=== PATIENT | male | born 1980 | race Two or more races ===

== ENCOUNTER 2024-08-10 09:09 | Emergency (ER) | payer MEDICAID, MEDICARE ==
[~2024-08-10] VITALS: Ht 185.4 cm; Wt 95.5 kg
[2024-08-10 09:33] VITALS: BP 112/65; PULSE 105; RESP 24; TEMP 97.3; O2SAT 99
[2024-08-10 10:22] LABS: Basophils # (auto) 0.1 10 ^3/uL (0-0.2); Basophils % (auto) 0.3 % (0.0-2.0); Eosinophils # (auto) 0.1 10 ^3/uL (0-0.8); Eosinophils % (auto) 0.4 % (0.0-7.0); Hemoglobin 14.6 g/dL (13.5-17.5); Lymphocytes # (auto) 2.3 10 ^3/uL (0.4-5.4); Lymphocytes % (auto) 14.4 % (10.0-50.0); Mean Corpuscular Hemoglobin 30.9 pg (28.0-32.0); Mean Corpuscular Hgb Conc. 33.2 g/dL (32.0-36.0); Mean Corpuscular Volume 92.9 fL (80.0-100.0); Monocytes # (auto) 0.9 10 ^3/uL (0-1.3); Monocytes % (auto) 5.5 % (0.0-12.0); Neutrophils # (auto) 12.6 10 ^3/uL (1.6-8.6); Neutrophils % (auto) 79.4 % (37.0-80.0); Nucleated Red Blood Cells % 0.1 %; Platelet Count (auto) 350 10^3/uL (140-450); Red Blood Cells 4.74 10^6/uL (4.5-5.90); White Blood Cell 15.9 10^3/uL (4.4-10.8)
--- NOTE | 2024-08-10 10:31 | ED.PDOC ---
Leydi. trauma (HPI) HPI Comments This is a 43 year old male presenting to the ED with chief complaint of fall injury. Patient reports that he had been at a skate park with his children a week ago when his daughter was approaching the edge of a steep slope, managing to move her away, but fell over and landed on his right side, causing him to lose consciousness for some time. Patient relays that since the fall, he has been experiencing bilateral leg swelling and discoloration, lower back pain, numbness from abdomen down, hematuria, and blood in stools. 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 Patient denies any N/V/D, dizziness, headache, chest pain, SOB, dysuria, flank pain, melena, or hematemesi s. Chief Complaint: Fall Injury Time Seen by MD: 10:28 Primary Care Provider: DENIES Reviewed notes: Nurses Notes, Medications, Allergies Allergies: Coded Allergies: NO KNOWN ALLERGIES (Unverified , 09/01/10) Information Source: Patient Mode of Arrival: Wheelchair Severity: Moderate Timing: Weeks Duration: Since onset Prehospital treatment: None Location: Abdominal, Back, (L) Leg, (R) Leg Mechanism: Fall Past Medical History Past Medical History (Other): DVTs Surgical History: Cholecystectomy Surgical History (Other): Right arm above elbow amputation, thoracic surgery s/p work accident, splenectomy Family History Family History: Reviewed,noncontributory to illness Social History Smoker: Non-Smoker Alcohol: Denies ETOH Use Drugs: Denies Drug Use Lives In: Home Constitutional: denies: chills, diaphoresis, fatigue, fever, malaise, sweats, weakness, others EENTM: denies: blurred vision, double vision, ear bleeding, ear discharge, ear drainage, ear pain, ear ringing, eye pain, eye redness, hearing loss, mouth pain, mouth swelling, nasal discharge, nose bleeding, nose congestion, nose pain, photophobia, tearing, throat pain, throat swelling, voice changes, others Respiratory: denies: cough, hemoptysis, orthopnea, SOB at rest, shortness of breath, SOB with excertion, stridor, wheezing, others Cardiovascular: reports: edema; denies: chest pain, dizzy spells, diaphoresis, Dyspnea on exertion, irregular heart beat, left arm pain, lightheadedness, palpitations, PND, syncope, others Gastrointestinal: reports: blood streaked bowels; denies: abdomen distended, abdominal pain, constipated, diarrhea, dysphagia, difficulty swallowing, hematemesis, melena, nausea, poor appetite, poor fluid intake, rectal bleeding, rectal pain, vomiting, others Genitourinary: reports: hematuria; denies: burning, dysuria, flank pain, frequency, incontinence, penile discharge, penile sore, pain, testicle pain, testicle swelling, urgency, others Neurological: reports: numbness; denies: dizziness, fainting, headache, left sided numbness, left sided weakness, paresthesia, pre-existing deficit, right sided numbness, right sided weakness, seizure, speech problems, tingling, tremors, weakness, others Musculoskeletal: reports: back pain; denies: gout, joint pain, joint swelling, muscle pain, muscle stiffness, neck pain, others Integumetry: denies: bruises, change in color, change in hair/nails, dryness, laceration, lesions, lumps, rash, wounds, others Allergic/Immunocompromised: denies: Difficulty Healing, Frequent Infections, Hives, Itching, others Hematologic/Lymphatic: denies: anemia, blood clots, easy bleeding, easy bruising, swollen glands, others Endocrine: denies: excessive hunger, excessive sweating, excessive thirst, excessive urination, flushing, intolerance to cold, intolerance to heat, unexplained weight gain, unexplained weight loss, others Psychiatric: denies: anxiety, bipolar disorder, depression, hopeless, panic disorder, schizophrenia, sleepless, suicidal, others All Other Systems: Reviewed and Negative Physical Exam General Appearance: No Apparent Distress, Normal HEENT: Normal ENT Inspection, Pharynx Normal, TMs Normal Neck: Full Range of Motion, Non-Tender, Normal, Normal Inspection Respiratory: Chest Non-Tender, Lungs Clear, No Accessory Muscle Use, No Respiratory Distress, Normal Breath Sounds Cardiovascular: No Edema, No JVD, No Murmur, No Gallop, Normal Peripheral Pulses, Regular Rate/Rhythm Breast Exam: Deferred Gastrointestinal: No Organomegaly, Non Tender, No Pulsatile Mass, Normal Bowel Sounds, Soft, Other (No abdominal bruising or signs of obvious trauma) Genitalia: Deferred Pelvic: Deferred Rectal: Deferred Extremities: Other (3+ pedal edema, right arm post amputation stump, moves all extremities) Musculoskeletal : Apperance: Normal Neurologic: Alert, trace evidence technician II-XII nml as Tested, No Motor Deficits, Normal Affect, Normal Mood, No Sensory Deficits Cerebellar Function: Normal Reflexes: Normal Skin: Dry, Normal Color, Warm Lymphatic: No Adenopathy Was a procedure done? Was a procedure done?: No Differential Diagnosis Multiple Trauma: Fractures, Intraabdominal Injury, Spine Injury, Vascular Injury, Contusion, Hematoma Neck Injury: Spinal Cord Injury X-Ray, Labs, Meds, VS Vital Signs Date Time Temp Pulse Resp B/P (MAP) Pulse Ox O2 Delivery O2 Flow Rate FiO2 08/10/24 09:33 97.3 105 24 112/65 (81) 99 97.3 Lab Test 08/10/24 10:05 Range/Units White Blood Count 15.9 H 4.4-10.8 10^3/uL Red Blood Count 4.74 4.5-5.90 10^6/uL Hemoglobin 14.6 13.5-17.5 g/dL Hematocrit 44.0 41.0-53.0 % Mean Corpuscular Volume 92.9 80.0-100.0 fL Mean Corpuscular Hemoglobin 30.9 28.0-32.0 pg Mean Corpuscular Hemoglobin Concent 33.2 32.0-36.0 g/dL Red Cell Distribution Width 14.0 11.8-14.3 % Platelet Count 350 140-450 10^3/uL Mean Platelet Volume 7.8 6.9-10.8 fL Neutrophils (%) (Auto) 79.4 37.0-80.0 % Lymphocytes (%) (Auto) 14.4 10.0-50.0 % Monocytes (%) (Auto) 5.5 0.0-12.0 % Eosinophils (%) (Auto) 0.4 0.0-7.0 % Basophils (%) (Auto) 0.3 0.0-2.0 % Neutrophils # (Auto) 12.6 H 1.6-8.6 10 ^3/uL Lymphocytes # (Auto) 2.3 0.4-5.4 10 ^3/uL Monocytes # (Auto) 0.9 0-1.3 10 ^3/uL Eosinophils # (Auto) 0.1 0-0.8 10 ^3/uL Basophils # (Auto) 0.1 0-0.2 10 ^3/uL Nucleated Red Blood Cells 0.1 % Prothrombin Time 11.1 9.3-11.8 sec Prothrombin Time INR 1.05 0.9-1.15 Activated Partial Thromboplast Time 22.7 L 24.5-34.5 SEC Sodium Level 141 136-145 mmol/L Potassium Level 4.2 3.5-5.1 mmol/L Chloride Level 106 98-107 mmol/L Carbon Dioxide Level 23 20-31 mmol/L Anion Gap 12 5-15 Blood Urea Nitrogen 16 9-23 mg/dL Creatinine 1.06 0.700-1.30 mg/dL Glomerular Filtration Rate Calc 89 >90 mL/min BUN/Creatinine Ratio 15.1 10.0-20.0 Serum Glucose 120 H 74-106 mg/dL Calcium Level 10.8 H 8.7-10.4 mg/dL Total Bilirubin 1.2 H 0.2-1.0 mg/dL Aspartate Amino Transferase (AST) 30 <34 U/L Alanine Aminotransferase (ALT) 39 7-40 U/L Alkaline Phosphatase 130 H 46-116 U/L Total Protein 8.5 H 5.7-8.2 g/dL Albumin 5.3 H 3.2-4.8 g/dL Time of 1ST Reevaluation: 11:26 Reevaluation 1ST: Unchanged Time of 2ND Reevaluation: 12:00 Reevaluation 2ND: pt eloped Patient Education/Counseling: Diagnosis, Treatment, Prognosis, Need For Follow Up Family Education/Counseling: No Family Present Additional Information Previous visits reviewed: 09/01/10 for abdominal pain The following tests were ordered, and results were reviewed by me: CT Angio Abd Aorta w/ runoff, CT LS Spine, Type/Screen, CBC, CMP, PTPTT Additional Information was gathered from interviewing the following independent historians: None I reviewed and agreed with the following test results read by other providers: CT Angio Abd Aorta w/ runoff, CT LS Spine I discussed treatment and results with medical personnel and: patient Comprehensive systems review obtained and negative except for what is stated in the HPI. pt was laying on the floor, and was told by charge nurse to sit in a chair, but he did not like it so asked to have his IV removed and eloped Departure 1 Departure Time of Disposition: 12:00 Impression: Primary Impression: Back pain Additional Impressions: Injury Abdominal pain Qualified Codes: R10.13 - Epigastric pain Leg numbness Disposition: 07 LEFT AWOL/ELOPED Condition: Other (unknown) Critical Care Note Critical Care Time?: Yes (45 min-critical care time only) Critical care comment: Due to concerns for patients condition deteriorating, the care required my highest level of attention and readiness to intervene. I assessed the patient, reviewed the medical records, ordered the appropriate tests and treatments, then reassessed for results and responsiveness. I communicated with medical personnel and consultants and formulated a plan of care. Total critical care time excludes any procedures Stability Stability form required: No Heart Score Heart Score: Heart Score Response (Comments) Value History N/A 0 EKG N/A 0 Age N/A 0 Risk Factors N/A 0 Troponin N/A 0 Total 0 I personally scribed for LALA GARCIA MD ([email or web address]) on 08/10/24 at 10:31. Electronically submitted by Agustin Combs ([email or web address]). LALA GARCIA MD Aug 10, 2024 10:31
[2024-08-10 10:36] LABS: Alanine Aminotransferase 39 U/L (7-40); Anion Gap 12 (5-15); Aspartate Aminotransferase 30 U/L (<34); BUN/Creatinine Ratio 15.1 (10.0-20.0); Bilirubin, Total 1.2 mg/dL (0.2-1.0); Blood Urea Nitrogen 16 mg/dL (9-23); Carbon Dioxide 23 mmol/L (20-31); Chloride 106 mmol/L (98-107); Potassium 4.2 mmol/L (3.5-5.1); Sodium 141 mmol/L (136-145)
[2024-08-10 10:52] LABS: INR 1.05 (0.9-1.15); Partial Thromboplastin Time 22.7 SEC (24.5-34.5); Prothrombin Time 11.1 sec (9.3-11.8)
[2024-08-10 10:59] LABS: Albumin 5.3 g/dL (3.2-4.8); Alkaline Phosphatase 130 U/L (46-116); Calcium 10.8 mg/dL (8.7-10.4); Glucose 120 mg/dL (74-106); Total Protein 8.5 g/dL (5.7-8.2)
[2024-08-10] MEDS ORDERED: fentaNYL CITRATE 100 MCG/2 ML VL IM ONE (12:00)
[2024-08-10] MEDS ORDERED: IOHEXOL 350 MG/ML 100ML IJ ONE (14:39)
[2024-08-11] MEDS ORDERED: APIX5TAB PO (18:29)
[2024-08-11] MEDS ORDERED: CYCL-839 PO (18:31)
[2024-08-14] MEDS ORDERED: AUG875T PO (10:36)
[2024-08-14] MEDS ORDERED: PERCOT PO (10:36)
== END 2024-08-10 12:03 | disposition left against medical advice (07) ==
LOC: ER 09:18
DX: S49.81XA Other specified injuries of right shoulder and upper arm, initial encounter (principal); M54.50 Low back pain, unspecified; R31.9 Hematuria, unspecified; M79.89 Other specified soft tissue disorders; R20.0 Anesthesia of skin; R10.9 Unspecified abdominal pain; Z86.718 Personal history of other venous thrombosis and embolism; Z90.49 Acquired absence of other specified parts of digestive tract; Z98.890 Other specified postprocedural states; W18.39XA Other fall on same level, initial encounter; Y93.89 Activity, other specified; Y92.830 Public park as the place of occurrence of the external cause; Y99.8 Other external cause status
CPT/HCPCS: 36415; 80053; 85025; 85610; 85730; 86850; 86870; 86900; 86901; 86905; 99283; J3010; J7030; Q9967

== ENCOUNTER 2024-08-10 12:55 | Inpatient (IN) | payer MEDICAID ==
[~2024-08-10] VITALS: Ht 177.8 cm; Wt 97.6 kg
--- NOTE | 2024-08-10 14:36 | ED.PDOC ---
Musculoskeletal HPI Comments This is a 43 year old male presenting to the ED with chief complaint of fall injury. Patient reports that he had been at a skate park with his children a week ago when his daughter was approaching the edge of a steep slope, managing to move her away, but fell over and landed on his right side, causing him to lose consciousness for some time. Patient relays that since the fall, he has been experiencing bilateral leg swelling and discoloration, lower back pain, numbness from abdomen down, hematuria, and blood in stools. 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 Patient denies any N/V/D, dizziness, headache, chest pain, SOB, dysuria, flank pain, melena, or hematemesis. Patient had eloped from the department, however, 911 was called again by a bystander and patient was transported by EMS back to the ED. Patient continues to complain of the same symptoms. Chief Complaint: Lower Extremity Time Seen by MD: 14:31 Primary Care Provider: DENIES Reviewed Notes: Nurses Notes, [employer]ra[employer] Roller Notes, Medications, Allergies Allergies: Coded Allergies: NO KNOWN ALLERGIES (Unverified , 09/01/10) Information Source: Patient, Emergency Med Personnel Mode of Arrival: EMS Location: Right Extremity Location: Back, Leg Timing: Weeks Prehospital treatment: None Severity: Severe Able to Move Extremity: Yes Bear Weight: Limited Pain: Moderate Mechanism: Blunt Trauma Circumstances: Fall Onset of Symptoms: After Trauma Symptoms: Swelling, Pain, Erythema DVT Risk Factors: DVT Past Medical History Past Medical History (Other): DVTs Surgical History: Cholecystectomy Surgical History (Other): Right arm above elbow amputation, thoracic surgery s/p work accident, splenectomy Family History Family History: Reviewed,noncontributory to illness Social History Smoker: Non-Smoker Alcohol: Denies ETOH Use Drugs: Denies Drug Use Lives In: Home Constitutional: denies: chills, diaphoresis, fatigue, fever, malaise, sweats, weakness, others EENTM: denies: blurred vision, double vision, ear bleeding, ear discharge, ear drainage, ear pain, ear ringing, eye pain, eye redness, hearing loss, mouth pain, mouth swelling, nasal discharge, nose bleeding, nose congestion, nose pain, photophobia, tearing, throat pain, throat swelling, voice changes, others Respiratory: denies: cough, hemoptysis, orthopnea, SOB at rest, shortness of breath, SOB with excertion, stridor, wheezing, others Cardiovascular: reports: edema; denies: chest pain, dizzy spells, diaphoresis, Dyspnea on exertion, irregular heart beat, left arm pain, lightheadedness, palpitations, PND, syncope, others Gastrointestinal: reports: blood streaked bowels; denies: abdomen distended, abdominal pain, constipated, diarrhea, dysphagia, difficulty swallowing, hematemesis, melena, nausea, poor appetite, poor fluid intake, rectal bleeding, rectal pain, vomiting, others Genitourinary: reports: hematuria; denies: burning, dysuria, flank pain, fr equency, incontinence, penile discharge, penile sore, pain, testicle pain, testicle swelling, urgency, others Neurological: reports: numbness; denies: dizziness, fainting, headache, left sided numbness, left sided weakness, paresthesia, pre-existing deficit, right sided numbness, right sided weakness, seizure, speech problems, tingling, tr emors, weakness, others Musculoskeletal: reports: back pain; denies: gout, joint pain, joint swelling, muscle pain, muscle stiffness, neck pain, others Integumetry: denies: bruises, change in color, change in hair/nails, dryness, laceration, lesions, lumps, rash, wounds, others Allergic/Immunocompromised: denies: Difficulty Healing, Frequent Infections, Hives, Itching, others Hematologic/Lymphatic: denies: anemia, blood clots, easy bleeding, easy bruising, swollen glands, others Endocrine: denies: excessive hunger, excessive sweating, excessive thirst, excessive urination, flushing, intolerance to cold, intolerance to heat, unexp lained weight gain, unexplained weight loss, others Psychiatric: denies: anxiety, bipolar disorder, depression, hopeless, panic disorder, schizophrenia, sleepless, suicidal, others All Other Systems: Reviewed and Negative Physical Exam General Appearance: No Apparent Distress, Normal HEENT: Normal ENT Inspection, Pharynx Normal, TMs Normal Neck: Full Range of Motion, Non-Tender, Normal, Normal Inspection Respiratory: Chest Non-Tender, Lungs Clear, No Accessory Muscle Use, No Respiratory Distress, Normal Breath Sounds Cardiovascular: No Edema, No JVD, No Murmur, No Gallop, Normal Peripheral Pulse s, Regular Rate/Rhythm Breast Exam: Deferred Gastrointestinal: No Organomegaly, Non Tender, No Pulsatile Mass, Normal Bowel Sounds, Soft, Other (No abdominal bruising or signs of obvious trauma) Genitalia: Deferred Pelvic: Deferred Rectal: Deferred Extremities: Other (3+ pedal edema, right arm post amputation stump, moves all extremities) Musculoskeletal : Apperance: Normal Neurologic: Alert, assistant floor covering printer II-XII nml as Tested, No Motor Deficits, Normal Affect, Normal Mood, No Sensory Deficits Cerebellar Function: Normal Reflexes: Normal Skin: Dry, Normal Color, Warm Lymphatic: No Adenopathy Was a procedure done? Was a procedure done?: No Differential Diagnosis EXT Differential Diagnosis: Cellulitis, CHF, Compartment Syndrome, Fracture, Sprain, Dislocation, Laceration, Contusion, Strain, Neurovascular injury, Other (aortic injury, spinal injury) X-Ray, Labs, Meds, VS Vital Signs Date Time Temp Pulse Resp B/P (MAP) Pulse Ox O2 Delivery O2 Flow Rate FiO2 08/10/24 17:07 97.6 97 24 108/72 (84) 95 97.6 08/10/24 13:23 97.9 92 18 96/64 (75) 98 97.9 Time of 1ST Reevaluation: 15:31 Reevaluation 1ST: Unchanged Time of 2ND Reevaluation: 17:43 Reevaluation 2ND: Improved Patient Education/Counseling: Diagnosis, Treatment, Prognosis, Need For Follow Up Family Education/Counseling: No Family Present Comments pt has 3+ bipedal edema. he also feels numb, but is able to ambulate. i was concerned about possibly neurovascular or spinal injuries, but the CTs are reassuring. his numbness likely is due to the extensive swelling. a concurrent cellulitis is possible he will be admitted for antibiotic and further treatments Additional Information Previous visits reviewed: 09/01/10 for abdominal pain The following tests were ordered, and results were reviewed by me: CT Angio Abd Aorta w/ runoff, CT LS Spine, Type/Screen, CBC, CMP, PTPTT Additional Information was gathered from interviewing the following independent historians: None I reviewed and agreed with the following test results read by other providers: CT Angio Abd Aorta w/ runoff, CT LS Spine I discussed treatment and results with medical personnel and: patient Comprehensive systems review obtained and negative except for what is stated in the HPI. Departure 1 Departure Time of Disposition: 17:44 Impression: Primary Impression: Paresthesia Additional Impressions: Pedal edema Cellulitis Disposition: 09 ADMITTED INPATIENT Admit to: Med Surg Condition: Serious Discharged With: Self Critical Care Note Critical Care Time?: Yes (55 min-critical care time only) Critical care comment: Due to concerns for patients condition deteriorating, the care required my highest level of attention and readiness to intervene. I assessed the patient, reviewed the medical records, ordered the appropriate tests and treatments, then reassessed for results and responsiveness. I communicated with medical personnel and consultants and formulated a plan of care. Total critical care time excludes any procedures Stability Stability form required: No Heart Score Heart Score: Heart Score Response (Comments) Value History N/A 0 EKG N/A 0 Age N/A 0 Risk Factors N/A 0 Troponin N/A 0 Total 0 I personally scribed for LALA GARCIA MD ([email or web address]) on 08/10/24 at 14:36. Electronically submitted by Agustin Combs ([email or web address]). LALA GARCIA MD Aug 10, 2024 14:36
--- NOTE | 2024-08-10 15:24 | DVH ---
CT LS SPINE WO CONTRAST INDICATION: injuries EXAM DATE: 08/10/2024 02:35 PM COMPARISON: None RADIATION DOSE: CTDIvol: 26.12 mGy, DLP: 910.94 mGy*cm PROCEDURE: Utilizing the CT scanner, contiguous axial scans were obtained through the lumbar spine. C oronal and sagittal reformatted images were then generated. All CT scans at this medical facility are performed using dose modulation techniques as appropriate t o a performed exam including the following: Automated exposure control was utilized; adjustment of th e MA and/or KV according to patient size; and use of iterative reconstruction technique. FINDINGS: There are 5 lumbar segments. The lumbar vertebral body heights and alignment are maintained . The intervertebral disc spaces are mildly narrow. The cortical margins are intact. The paraspinal s oft tissues are normal. On axial images: There is L4-5 posterior disc bulge with mild central canal narrowing. Mild neural f oramina narrowing is seen at that level. IMPRESSION: L4-5 posterior disc bulge with mild central canal narrowing. Mild neural foramina narrowing is seen a t that level. No acute fracture CT findings of the lumbar spine.
--- NOTE | 2024-08-10 17:28 | DVH ---
EXAM: CT CT ANGIO ABD AORTA W RUN OFF Reason for study/Clinical History: injuries COMPARISON STUDY: None CTA bilateral LOWER EXTREMITY RUNOFF WITH CONTRAST DATED 08/10/2024 04:38 PM TECHNIQUE: 3D angiographic acquisition of lower extremities was obtained during the intravenous admi nistration of 100 mL omnipaque 350 without immediate adverse effect. 3D Post processing, including ma ximum intensity projection, was performed on an independent workstation and images were reviewed on a [facility] PACS. Radiation Dose : 1198 mGy-cm FINDINGS: Vascular: Bilateral common , external and internal iliac arteries are widely patent without evidence aneurysm, irregularity or stenosis. Bilateral common femoral, profunda femoral, superficial femoral and poplit eal arteries patent, without aneurysm, irregularity or stenosis. No abnormal medial deviation of popl iteal arteries. The bilateral below-knee arteries are poorly opacified distally which is likely due to suboptimal con trast bolus. No evidence of acute arterial insufficiency down to level of the upper christopher. Other findings: No evidence of venous opacification during arterial phase to suggest fistula or AV malformation. Bilateral kidneys are unremarkable. Urinary bladder is collapsed . The visualized bowel is unremarkab le. Infrarenal IVC filter is partially visualized. Musculoskeletal: No aggressive focal bony lesions, acute fractures or dislocation. Surgical fixation hardware is seen in the right tibial shaft. Edema and fat stranding is seen throughout both legs which may reflect cellulitis. No discernible abs cess identified. IMPRESSION: 1. Right lower extremity arteries: No evidence of acute arterial insufficiency or arterial injury. 2. Left lower extremity arteries: No evidence of acute arterial insufficiency or arterial injury. 3. Edema and fat stranding is seen throughout both legs which may reflect cellulitis. No discernible abscess identified. END IMPRESSION:
[2024-08-10] MEDS: fentaNYL CITRATE 100 MCG/2 ML VL IV ONE (18:39)
[2024-08-10] MEDS: cefTRIAXone 1GM/50ML D5W 50 ML IV ONE (20:02)
[2024-08-11] MEDS ORDERED: ONDANSETRON HCL 4 MG/2 ML VIAL IV PRN
[2024-08-11] MEDS ORDERED: NITROGLYCERIN 0.4 MG SL TAB SL PRN
[2024-08-11] MEDS ORDERED: MORPHINE SULFATE INJ 2 MG/ml SYRG IV PRN
[2024-08-11] MEDS ORDERED: ACETAMINOPHEN 325 MG TAB PO PRN
--- NOTE | 2024-08-11 | DVHHP2 ---
History of Present Illness Reason for Visit: Pedal edema History of Present Illness The patient is a 43-year-old male with past medical history of DVTs who presented to [facility] ED with complaint of bilateral lower extremity edema. Patient reports that he had been [place] a skate park with his children a week ago when his daughter was approaching the edge of a steep slope, managing to move her away, but fell over and landed on his right side, causing him to lose consciousness for some time. Patient relays that since the fall, he has been experiencing bilateral leg swelling, discoloration, lower back pain, numbness from abdomen down, hematuria, and blood in stools. 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 Patient was seen and evaluated in the ED, laboratory data shows WBC 19.7, platelets 183, sodium 135, potassium 5.5, BUN 26, creatinine 1.40, glucose 165, blood pressure 118/74, heart rate 99, temperature 97.9 F, O2 saturation 98% on room air. CT angio abdomen aorta with runoff showed no evidence of acute arterial insufficiency arterial injury. Patient was started on IV antibiotic regimen Rocephin, please see medication orders section in the computer. On my assessment, patient denied chest pain, no dizziness, no diaphoresis, no headache, no shortness of breath, no nausea, no vomiting, no fever, no chills. Patient was admitted for further evaluation and medical management. Past Medical History DVTs Past Surgical History Cholecystectomy, Right arm above elbow amputation, Thoracic surgery s/p work accident, Splenectomy Family History Reviewed, noncontributory to the management of this case. Past Social History The patient lives at home, denies smoking, alcohol or illicit drugs abuse. Review of Systems Constitutional: No: Fever, Chills, Sweats, Weakness, Malaise, Other Eyes: No: Pain, Vision change, Conjunctivae inflammation, Eyelid inflammation, Other, Redness Respiratory: No: Cough, Dry, Shortness of breath, SOB with excertion, Wheezing, Hemoptysis, Pleuritic Pain, Sputum, Wheezing, Other Cardiovascular: Edema; No: Chest Pain, Palpitations, Orthopnea, Paroxysmal Noc. Dyspnea, Lt Headedness, Other Gastrointestinal: Other (Blood streak bowel); No: Nausea, Vomiting, Abdominal Pain, Diarrhea, Constipation, Melena, Hematochezia Genitourinary: No Dysuria, No Frequency, No Incontinence; Hematuria; No Retention, No Other Musculoskeletal: back pain; No: other, neck pain, shoulder pain, arm pain, hand pain, leg pain, foot pain Skin: No: Rash, Lesions, Jaundice, Bruising, Other Neurological: Numbness; No: Weakness, Incoordination, Change in speech, Confusion, Seizures, Other Allergies: Coded Allergies: NO KNOWN ALLERGIES (Unverified , 09/01/10) Exam Vital Signs Vital Signs Date Time Temp Pulse Resp B/P (MAP) Pulse Ox O2 Delivery O2 Flow Rate FiO2 08/10/24 20:34 97.9 100 18 118/74 (89) 98 97.9 General Appearance: Alert, Oriented X3, Cooperative, No acute distress HEENT: Atraumatic, PERRLA, EOMI, Mucous membr. moist/pink Respiratory: Clear to auscultation, Normal air movement Cardiovascular: Regular rate, Normal S1, Normal S2, No murmurs Abdominal: Normal bowel sounds, Soft, No tenderness, No hepatospenomegaly, No masses Extremities: No clubbing, No cyanosis, Normal pulses, Other (Lower extremity edema/redness) Skin: No rashes, No breakdown, No significant lesion Neuro: Normal speech, Normal tone, Sensation intact, Cranial nerves 3-12 NL, Reflexes 2+, Other (Generalized weakness) Psych/Mental Status: Mental status NL, Mood NL Labs/Xrays PATIENT: MILLY JUNG ACCT: [id number] UNIT: [id number] : 1980 LOC: ER ROOM / BED: / AGE / SEX: 43 / M ADM STATUS: REG ER SERVICE 1421 ORDERING PHYSICIAN: LALA GARCIA MD PROCEDURE(s): CTAAA - CT ANGIO ABD AORTA W RUN OFF REASON: injuries ORDER NUMBER(s): [id number], ACCESSION NUMBER(s): [id number] EXAM: CT CT ANGIO ABD AORTA W RUN OFF Reason for study/Clinical History: injuries COMPARISON STUDY: None CTA bilateral LOWER EXTREMITY RUNOFF WITH CONTRAST DATED 08/10/2024 04:38 PM TECHNIQUE: 3D angiographic acquisition of lower extremities was obtained during the intravenous administration of 100 mL omnipaque 350 without immediate adverse effect. 3D Post processing, including maximum intensity projection, was performed on an independent workstation and images were reviewed on a [facility] PACS. Radiation Dose: 1198 mGy-cm FINDINGS: Vascular: Bilateral common , external and internal iliac arteries are widely patent without evidence aneurysm, irregularity or stenosis. Bilateral common femoral, profunda femoral, superficial femoral and popliteal arteries patent, without aneurysm, irregularity or stenosis. No abnormal medial deviation of popliteal arteries. The bilateral below-knee arteries are poorly opacified distally which is likely due to suboptimal contrast bolus. No evidence of acute arterial insufficiency down to level of the upper christopher. Other findings: No evidence of venous opacification during arterial phase to suggest fistula or AV malformation. Bilateral kidneys are unremarkable. Urinary bladder is collapsed. The visualized bowel is unremarkable. Infrarenal IVC filter is partially visualized. Musculoskeletal: No aggressive focal bony lesions, acute fractures or dislocation. Surgical fixation hardware is seen in the right tibial shaft. Edema and fat stranding is seen throughout both legs which may reflect cellulitis. No discernible abscess identified. IMPRESSION: 1. Right lower extremity arteries: No evidence of acute arterial insufficiency or arterial injury. 2. Left lower extremity arteries: No evidence of acute arterial insufficiency or arterial injury. 3. Edema and fat stranding is seen throughout both legs which may reflect cellulitis. No discernible abscess identified. ORDERING PHYSICIAN: LALA GARCIA MD PROCEDURE(s): LS2CT - LS SPINE WO CONTRAST REASON: injuries ORDER NUMBER(s): [id number], ACCESSION NUMBER(s): [id number] CT LS SPINE WO CONTRAST INDICATION: injuries EXAM DATE: 08/10/2024 02:35 PM COMPARISON: None RADIATION DOSE: CTDIvol: 26.12 mGy, DLP: 910.94 mGy*cm PROCEDURE: Utilizing the CT scanner, contiguous axial scans were obtained through the lumbar spine. Coronal and sagittal reformatted images were then generated. All CT scans at this medical facility are performed using dose modulation techniques as appropriate to a performed exam including the following: Automated exposure control was utilized; adjustment of the MA and/or KV according to patient size; and use of iterative reconstruction technique. FINDINGS: There are 5 lumbar segments. The lumbar vertebral body heights and alignment are maintained. The intervertebral disc spaces are mildly narrow. The cortical margins are intact. The paraspinal soft tissues are normal. On axial images: There is L4-5 posterior disc bulge with mild central canal narrowing. Mild neural foramina narrowing is seen at that level. IMPRESSION: L4-5 posterior disc bulge with mild central canal narrowing. Mild neural foramina narrowing is seen at that level. No acute fracture CT findings of the lumbar spine. Assessment/Plan Assessment/Plan Pedal edema Cellulitis of foot Paresthesia Leukocytosis, unspecified Imbalance electrolyte Acute renal injury Generalized weakness Plan 1. Admit to telemetry unit 2. Breathing treatment 3. Pain control management 4. IV antibiotic management 5. Management of fluids and electrolytes 6. Consultation for hospitalist 7. Diagnostic test CT angio abdomen aorta 8. DVT prophylaxis-on Eliquis 9. Repeat labs CBC, CMP in a.m. 10. Home medication reviewed and reconciled 11. Continue with current medical management 12. Treatment plan discussed with patient and RN. Patient verbalized understanding. Plan discussed with: Patient, Other (RN) Problem List: (1) Pedal edema (2) Cellulitis of foot (3) Paresthesia (4) Electrolyte imbalance (5) Leukocytosis, unspecified (6) Acute renal injury (7) Generalized weakness Date of Service: Aug 11, 2024 Billing Provider: SWETA GO DNP Common Visit Codes: [id number] INP/OBS CARE (HIGH) SWETA GO DNP Aug 11, 2024 00:00
[2024-08-11 00:36] LABS: Basophils # (auto) 0 10 ^3/uL (0-0.2); Basophils % (auto) 0.1 % (0.0-2.0); Eosinophils # (auto) 0 10 ^3/uL (0-0.8); Hematocrit 43.9 % (41.0-53.0); Hemoglobin 14.6 g/dL (13.5-17.5); Lymphocytes # (auto) 1.6 10 ^3/uL (0.4-5.4); Lymphocytes % (auto) 8.1 % (10.0-50.0); Mean Corpuscular Hgb Conc. 33.3 g/dL (32.0-36.0); Mean Corpuscular Volume 93.1 fL (80.0-100.0); Monocytes # (auto) 1.2 10 ^3/uL (0-1.3); Monocytes % (auto) 6.1 % (0.0-12.0); Neutrophils # (auto) 16.9 10 ^3/uL (1.6-8.6); Neutrophils % (auto) 85.7 % (37.0-80.0); Nucleated Red Blood Cells % 0.1 %; Platelet Count (auto) 183 10^3/uL (140-450); Red Blood Cells 4.72 10^6/uL (4.5-5.90); Red Cell Distribution Width 14.4 % (11.8-14.3); White Blood Cell 19.7 10^3/uL (4.4-10.8)
[2024-08-11 00:53] LABS: Alanine Aminotransferase 40 U/L (7-40); Anion Gap 12 (5-15); Aspartate Aminotransferase 31 U/L (<34); BUN/Creatinine Ratio 18.6 (10.0-20.0); Calcium 9.7 mg/dL (8.7-10.4); Chloride 103 mmol/L (98-107); Total Protein 8.2 g/dL (5.7-8.2)
[2024-08-11 00:54] LABS: Bilirubin, Total 0.8 mg/dL (0.2-1.0)
[2024-08-11 00:55] LABS: Albumin 5.2 g/dL (3.2-4.8); Alkaline Phosphatase 129 U/L (46-116); Blood Urea Nitrogen 26 mg/dL (9-23); Carbon Dioxide 20 mmol/L (20-31); Glucose 165 mg/dL (74-106); Potassium 5.5 mmol/L (3.5-5.1); Sodium 135 mmol/L (136-145)
[2024-08-11 00:59] VITALS: RESP 18; O2SAT 98
[2024-08-11] MEDS: SODIUM CHLORIDE 0.9% 1,000 ML IV SCH (04:28)
[2024-08-11 04:47] LABS: Basophils # (auto) 0 10 ^3/uL (0-0.2); Basophils % (auto) 0.1 % (0.0-2.0); Eosinophils # (auto) 0 10 ^3/uL (0-0.8); Hematocrit 40.7 % (41.0-53.0); Hemoglobin 13.5 g/dL (13.5-17.5); Lymphocytes % (auto) 10.5 % (10.0-50.0); Mean Corpuscular Hemoglobin 30.6 pg (28.0-32.0); Mean Corpuscular Hgb Conc. 33.2 g/dL (32.0-36.0); Mean Corpuscular Volume 92.3 fL (80.0-100.0); Monocytes # (auto) 1.4 10 ^3/uL (0-1.3); Monocytes % (auto) 7.3 % (0.0-12.0); Neutrophils # (auto) 15.5 10 ^3/uL (1.6-8.6); Neutrophils % (auto) 82.1 % (37.0-80.0); Platelet Count (auto) 171 10^3/uL (140-450); Red Blood Cells 4.41 10^6/uL (4.5-5.90); Red Cell Distribution Width 14.2 % (11.8-14.3); White Blood Cell 18.9 10^3/uL (4.4-10.8)
[2024-08-11 05:04] LABS: Alanine Aminotransferase 32 U/L (7-40); Albumin 4.8 g/dL (3.2-4.8); Anion Gap 11 (5-15); Aspartate Aminotransferase 28 U/L (<34); BUN/Creatinine Ratio 20.5 (10.0-20.0); Calcium 10.1 mg/dL (8.7-10.4); Carbon Dioxide 23 mmol/L (20-31); Chloride 104 mmol/L (98-107); Potassium 4.7 mmol/L (3.5-5.1); Sodium 138 mmol/L (136-145); Total Protein 7.6 g/dL (5.7-8.2)
[2024-08-11 05:05] LABS: Bilirubin, Total 0.8 mg/dL (0.2-1.0)
[2024-08-11 05:10] LABS: Alkaline Phosphatase 117 U/L (46-116); Blood Urea Nitrogen 25 mg/dL (9-23); Glucose 133 mg/dL (74-106)
[2024-08-11] MEDS: HYDROcodone-ACET 5/325MG TAB PO PRN (09:44)
[2024-08-11] MEDS: APIXABAN 5 MG TAB PO SCH (09:56)
[2024-08-11] MEDS ORDERED: ENOXAPARIN SOD 40 MG/0.4 ML SYRINGE SC SCH (10:00)
[2024-08-11 10:56] VITALS: PULSE 103; O2SAT 95
--- NOTE | 2024-08-11 15:19 | DVHPN2 ---
Subjective Patient reporting severe generalized pain. Reviewed: Care Plan, H&P, Labs, Medications Changes from previous H/P or p: No Changes General: Per HPI Eyes: No Pain, No Vision change, No Conjunctivae inflammation, No Eyelid inflammation, No Other, No Redness Cardiovascular: No Chest Pain, No Palpitations, No Orthopnea, No Paroxysmal Noc. Dyspnea; Edema; No Lt Headedness, No Other Respiratory: No Cough, No Dry, No Shortness of breath, No SOB with excertion, No Wheezing, No Hemoptysis, No Pleuritic Pain, No Sputum, No Other Gastrointestinal: No Nausea, No Vomiting, No Abdominal Pain, No Diarrhea, No Constipation, No Melena, No Hematochezia; Other (Blood streak bowel) Genitourinary: No Dysuria, No Frequency, No Incontinence; Hematuria; No Retention, No Other Musculoskeletal: No other, No neck pain, No shoulder pain, No arm pain; back pain; No hand pain, No leg pain, No foot pain Skin: No Rash, No Lesions, No Jaundice, No Bruising, No Other Objective Vitals Vital Signs Date Time Temp Pulse Resp B/P (MAP) Pulse Ox O2 Delivery O2 Flow Rate FiO2 08/11/24 10:56 103 95 Room Air* 0 21 21 08/11/24 10:00 96/74 (81) 08/11/24 01:04 98.5 18 98.5 Intake/Output Intake and Output 08/11/24 07:00 Intake Total 50 ml Balance 50 ml Intake IV Total 50 ml General Appearance: Alert, Oriented X3, Cooperative, No acute distress HEENT: Atraumatic, PERRLA Lungs: Clear to auscultation, Normal air movement Cardiovascular: Normal S1, Normal S2, Other (Sinus tach) Abdomen: Normal bowel sounds, Soft, No tenderness Back: Flank Tenderness, Midline Tenderness Musculoskeletal: Normal sensory function, Normal motor function Extremities: Other (Bilateral lower extremity swelling. Noted previous skin grafting to bilateral lower extremities.) Neuro: Cranial nerves 3-12 NL Skin: Dry, Intact Psych/Mental Status: Mental status NL, Mood NL Medications Current Medications Medications Dose Ordered Sig/Abdoulaye Route Start Time Stop Time Status Last Admin Dose Admin Ceftriaxone Sodium 50 ml @ 100 mls/hr DAILY@1800 IV 08/11/24 18:00 Apixaban 5 mg BID PO 08/11/24 10:00 08/11/24 09:56 5 MG Sodium Chloride 1,000 ml @ 60 mls/hr [id number] IV 08/11/24 00:00 08/11/24 04:28 60 MLS/HR Acetaminophen/ Hydrocodone Bitart 1 tab Q4HP PRN PO 08/11/24 00:00 08/11/24 09:44 1 TAB Ondansetron HCl 4 mg Q4HP PRN IV 08/11/24 00:00 Docusate Sodium 100 mg BIDPRN PRN PO 08/11/24 00:00 Acetaminophen 650 mg Q6HP PRN PO 08/11/24 00:00 Nitroglycerin 0.4 mg Q5MINP PRN SL 08/11/24 00:00 Morphine Sulfate 2 mg Q30M PRN IV 08/11/24 00:00 Laboratory Results Laboratory Tests 08/11/24 04:17 Chemistry Test 08/11/24 00:01 08/11/24 04:17 Albumin 5.2 g/dL (3.2-4.8) H 4.8 g/dL (3.2-4.8) Calcium Level 9.7 mg/dL (8.7-10.4) 10.1 mg/dL (8.7-10.4) Total Protein 8.2 g/dL (5.7-8.2) 7.6 g/dL (5.7-8.2) LFT Test 08/11/24 00:01 08/11/24 04:17 Alanine Aminotransferase (ALT) 40 U/L (7-40) 32 U/L (7-40) Alkaline Phosphatase 129 U/L (46-116) H 117 U/L (46-116) H Aspartate Amino Transferase (AST) 31 U/L (<34) 28 U/L (<34) Total Bilirubin 0.8 mg/dL (0.2-1.0) 0.8 mg/dL (0.2-1.0) Labs and/or images reviewed: Labs reviewed by me, Image(s) reviewed by me Assessment/Plan Assessment/Plan Impression: -bilateral lower extremity swelling, rule out DVT -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 Total time spent with patient discussing and formulating plan of care: 35 minutes. This medical document was created using an electronic medical record system with [employer] dictation system. Although this document has been carefully reviewed, there may still be some phonetic and typographical errors. These areas are purely typographical due to imperfections of the software programs, and do not reflect any compromise in the patient's medical care. Plan discussed with: Patient, Other (RN) My Orders Orders - MARJAN DE LA TORRE CHIEF ULTRASOUND TECHNOLOGIST Procedure Category Date Status Time Bilat Lower Dvt US 08/11/24 Verified 15:12 Urine Bacterial CODY 08/11/24 Verified Culture 15:12 Urinalysis LAB 08/11/24 Verified 15:12 B-Type Natriuretic LAB 08/11/24 Verified Peptide 15:12 Drug Screen LAB 08/11/24 Verified 15:12 Oxycodone W/ Acet PHA 08/11/24 Verified 5/325mg Tab (Percocet 15:15 Morphine Sulfate PHA 08/11/24 Verified Injection 15:15 Creatine Kinase LAB 08/11/24 Verified 15:12 Erythrocyte LAB 08/11/24 Verified Sedimentation Rate 15:12 C-Reactive Protein LAB 08/11/24 Verified 15:12 Zosyn Extended PHA 08/11/24 Verified Infusion 22:00 Basic Metabolic Panel LAB 08/12/24 Verified 04:00 Complete Blood Count LAB 08/12/24 Verified 04:00 Date of Service: Aug 11, 2024 Billing Provider: MARJAN DE LA TORRE NP Common Visit Codes: [id number] INP/OBS CARE(HIGH) MARJAN DE LA TORRE NP Aug 11, 2024 15:19
[2024-08-11 15:50] LABS: CRP High Sensitivity 3.9 mg/dL (<1.0)
[2024-08-11 16:01] LABS: Erythrocyte Sedimentation Rate 2 mm/hr (0-20)
[2024-08-11] MEDS: OXYCODONE W/ ACETAMINOPHEN 5/325MG TABLET PO PRN (16:08)
--- NOTE | 2024-08-11 16:13 | DVH ---
Bilateral lower extremity venous duplex Clinical History: BLE swelling Comparison: None Technique: Duplex Doppler evaluation of the deep venous systems of both lower extremities from the common femora l veins to the popliteal veins including color Doppler and spectral/pulsed waveform analysis was perf ormed. Findings: RIGHT SIDE: The common femoral vein demonstrates noncompressibility There is compressibility/patency of the great saphenous vein at the proximal thigh. The femoral vein demonstrates noncompressibility no flow The deep femoral vein demonstrates noncompressibility no flow The popliteal vein demonstrates noncompressibility no There is normal compressibility at the tibioperoneal trunk. LEFT SIDE: The common femoral vein demonstrates noncompressibility no flow There is compressibility/patency of the great saphenous vein at the proximal thigh. The femoral vein demonstrates noncompressibility no flow The deep femoral vein demonstrates appropriate compressibility and waveform variability. The popliteal vein demonstrates noncompressibility no flow There is normal compressibility noncompressibility flow Impression: 1. Positive deep venous thrombosis bilateral lower extremities. 2. Salts given to the RN ramana quigley And shaista. HS:Y
[2024-08-11] MEDS: PIPERACILLIN-TAZOB 3.375GM 100 ML IV SCH (16:30)
[2024-08-11 17:46] VITALS: BP 132/87; PULSE 95; RESP 18; TEMP 98.1; O2SAT 96
[2024-08-11] MEDS ORDERED: cefTRIAXone 1GM/50ML D5W 50 ML IV SCH (18:00)
[2024-08-11] MEDS ORDERED: APIX5TAB PO (18:29)
[2024-08-11] MEDS ORDERED: CYCL-839 PO (18:31)
[2024-08-11 20:00] VITALS: PULSE 104
[2024-08-11 20:35] LABS: Urine Bacteria None Seen /hpf (None Seen)
[2024-08-11 20:42] LABS: Urine Blood Negative /uL (Negative); Urine Clarity Clear (Clear); Urine Color Yellow (Yellow); Urine Mucus FEW (None Seen); Urine Protein, UAD TRACE (Negative); Urine Specific Gravity 1.039 (1.001-1.035); Urine Squamous Epithelial Cell FEW /hpf (<5); Urine Urobilinogen Normal (Negative); Urine WBC 3 /HPF (0-3)
[2024-08-11 20:51] LABS: Cannabinoid Screen, Urine Pos (NEGATIVE); Opiate Scree,Urine Pos (NEGATIVE)
[2024-08-11 20:53] LABS: Amphetamine Screen, Urine Neg (NEGATIVE); Barbiturate Scree,Urine Neg (NEGATIVE); Phencyclidine Screen, Urine Neg (NEGATIVE)
[2024-08-11 20:54] LABS: Benzodiazephine Screen, Urine Neg (NEGATIVE); Cocaine Screen, Urine Neg (NEGATIVE)
[2024-08-11 21:00] VITALS: BP 121/79; PULSE 88; RESP 20; TEMP 98.3; O2SAT 96
[2024-08-11] MEDS: MORPHINE SULFATE 4 MG/ML SYR/VIAL IV PRN (23:14)
[2024-08-12] VITALS (9 sets, daily range): BP systolic 110–132; BP diastolic 70–94; PULSE 83–101; RESP 16–20; TEMP 98–98.9; O2SAT 97–99
[2024-08-12 06:46] LABS: Basophils # (auto) 0 10 ^3/uL (0-0.2); Basophils % (auto) 0.2 % (0.0-2.0); Eosinophils # (auto) 0.1 10 ^3/uL (0-0.8); Eosinophils % (auto) 0.4 % (0.0-7.0); Hematocrit 33.9 % (41.0-53.0); Hemoglobin 11.5 g/dL (13.5-17.5); Lymphocytes # (auto) 2.6 10 ^3/uL (0.4-5.4); Mean Corpuscular Hgb Conc. 33.8 g/dL (32.0-36.0); Mean Corpuscular Volume 91.6 fL (80.0-100.0); Monocytes # (auto) 1.3 10 ^3/uL (0-1.3); Monocytes % (auto) 9.4 % (0.0-12.0); Neutrophils # (auto) 9.6 10 ^3/uL (1.6-8.6); Platelet Count (auto) 138 10^3/uL (140-450); Red Cell Distribution Width 13.8 % (11.8-14.3); White Blood Cell 13.5 10^3/uL (4.4-10.8)
[2024-08-12 06:52] LABS: Chloride 103 mmol/L (98-107); Potassium 4.1 mmol/L (3.5-5.1); Sodium 138 mmol/L (136-145)
[2024-08-12 06:53] LABS: Anion Gap 9 (5-15); Calcium 8.9 mg/dL (8.7-10.4); Carbon Dioxide 26 mmol/L (20-31)
[2024-08-12 06:58] LABS: BUN/Creatinine Ratio 20.5 (10.0-20.0); Blood Urea Nitrogen 18 mg/dL (9-23); Glucose 97 mg/dL (74-106)
--- NOTE | 2024-08-12 11:07 | DVHPN2 ---
Subjective Patient reporting severe generalized pain. Reviewed: Care Plan, H&P, Labs, Medications Changes from previous H/P or p: No Changes General: Per HPI Eyes: No Pain, No Vision change, No Conjunctivae inflammation, No Eyelid inflammation, No Other, No Redness Cardiovascular: No Chest Pain, No Palpitations, No Orthopnea, No Paroxysmal Noc. Dyspnea; Edema; No Lt Headedness, No Other Respiratory: No Cough, No Dry, No Shortness of breath, No SOB with excertion, No Wheezing, No Hemoptysis, No Pleuritic Pain, No Sputum, No Other Gastrointestinal: No Nausea, No Vomiting, No Abdominal Pain, No Diarrhea, No Constipation, No Melena, No Hematochezia; Other (Blood streak bowel) Genitourinary: No Dysuria, No Frequency, No Incontinence; Hematuria; No Retention, No Other Musculoskeletal: No other, No neck pain, No shoulder pain, No arm pain; back pain; No hand pain, No leg pain, No foot pain Skin: No Rash, No Lesions, No Jaundice, No Bruising, No Other Objective Vitals Vital Signs Date Time Temp Pulse Resp B/P (MAP) Pulse Ox O2 Delivery O2 Flow Rate FiO2 08/12/24 09:55 94 20 110/82 08/12/24 08:50 98.9 97 98.9 08/12/24 08:29 Room Air* 0 21 Intake/Output Intake and Output 08/12/24 07:00 Intake Total 900 ml Output Total 300 ml Balance 600 ml Intake Oral 360 ml IV Total 540 ml Output Urine Total 300 ml # Bowel Movements 1 General Appearance: Alert, Oriented X3, Cooperative, No acute distress HEENT: Atraumatic, PERRLA Lungs: Clear to auscultation, Normal air movement Cardiovascular: Normal S1, Normal S2, Other (Sinus tach) Abdomen: Normal bowel sounds, Soft, No tenderness Back: Flank Tenderness, Midline Tenderness Musculoskeletal: Normal sensory function, Normal motor function Extremities: Other (Bilateral lower extremity swelling. Noted previous skin grafting to bilateral lower extremities.) Neuro: Cranial nerves 3-12 NL Skin: Dry, Intact Psych/Mental Status: Mental status NL, Mood NL Medications Current Medications Medications Dose Ordered Sig/Abdoulaye Route Start Time Stop Time Status Last Admin Dose Admin Ceftriaxone Sodium 50 ml @ 100 mls/hr DAILY@1800 IV 08/11/24 18:00 Cancel Sodium Chloride 1,000 ml @ 60 mls/hr [id number] IV 08/11/24 00:00 08/11/24 18:25 60 MLS/HR Ondansetron HCl 4 mg Q4HP PRN IV 08/11/24 00:00 Docusate Sodium 100 mg BIDPRN PRN PO 08/11/24 00:00 Acetaminophen 650 mg Q6HP PRN PO 08/11/24 00:00 Nitroglycerin 0.4 mg Q5MINP PRN SL 08/11/24 00:00 Morphine Sulfate 2 mg Q30M PRN IV 08/11/24 00:00 Oxycodone/ Acetaminophen 1 tab Q4HP PRN PO 08/11/24 15:15 08/11/24 22:38 1 TAB Piperacillin Sod/ Tazobactam Sod 100 ml @ 25 mls/hr Q8HR IV 08/11/24 15:50 08/12/24 05:27 25 MLS/HR Morphine Sulfate 2 mg Q4HPRN PRN IV 08/12/24 10:45 UNV Enoxaparin Sodium 100 mg Q12HR SC 08/12/24 22:00 UNV Cyclobenzaprine HCl 5 mg Q8HPRN PRN PO 08/12/24 10:45 UNV Laboratory Results Laboratory Tests 08/12/24 05:23 Chemistry Test 08/12/24 05:23 Calcium Level 8.9 mg/dL (8.7-10.4) Urinalysis Test 08/11/24 20:24 Urine Color Yellow (Yellow) Urine Clarity Clear (Clear) Urine pH 6.0 (5.0-9.0) Urine Specific [place] 1.039 (1.001-1.035) Urine Protein Trace (Negative) H Urine Ketones Negative (Negative) Urine Blood Negative /uL (Negative) Urine Nitrite Negative (Negative) Urine Bilirubin Negative (Negative) Urine Urobilinogen Normal mg/dL (Negative) Urine Leukocyte Esterase Negative /uL (Negative) Urine RBC 1 /hpf (0 - 3) Urine Microscopic WBC 3 /HPF (0-3) Urine Squamous Epithelial Cells Few /hpf (<5) Urine Bacteria None seen /hpf (None Seen) Urine Mucus Few (None Seen) Urine Glucose Normal mg/dL (Normal) Microbiology Microbiology Date/Time Source Procedure Growth Status 08/11/24 20:24 Voided Urine Urine Culture - Preliminary Resulted 08/11/24 06:05 Blood Blood Culture - Preliminary NO GROWTH AFTER 24 HOURS OF INCUBATION. 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 Failure of oral anticoagulation with Eliquis. Start Lovenox. Discussed findings with the patient. IR consultation for possible thrombectomy -antibiotic therapy: Change to Zosyn -continue gentle IV hydration -pain management: Continue Percocet, increase frequency of IV morphine from q.6 to q.4 -repeat labs in a.m. Total time spent with patient discussing and formulating plan of care: 35 minutes. This medical document was created using an electronic medical record system with [employer] dictation system. Although this document has been carefully reviewed, there may still be some phonetic and typographical errors. These areas are purely typographical due to imperfections of the software programs, and do not reflect any compromise in the patient's medical care. Plan discussed with: Patient, Other (RN) My Orders Orders - MARJAN DE LA TORRE NP Procedure Category Date Status Time Bilat Lower Dvt US 08/11/24 Resulted 15:12 Urine Bacterial CODY 08/11/24 In Process Culture 15:12 Oxycodone W/ Acet PHA 08/11/24 In Process 5/325mg Tab (Percocet 15:15 Piperacillin-Tazob PHA 08/11/24 In Process 3.375gm (Zosyn 3.375g 15:50 Morphine Sulfate PHA 08/12/24 Logged Injection 10:45 Enoxaparin Sodium PHA 08/12/24 Logged (Lovenox) 22:00 Cyclobenzaprine PHA 08/12/24 Logged Tablet (Flexeril 10:45 * Radiologist Consult CONS 08/12/24 Transmitted 10:39 Date of Service: Aug 12, 2024 Billing Provider: MARJAN DE LA TORRE NP Common Visit Codes: [id number] INP/OBS CARE(HIGH) MARJAN DE LA TORRE NP Aug 12, 2024 11:07
[2024-08-12] MEDS: CYCLOBENZAPRINE HCL 10 MG TAB PO PRN (12:00)
[2024-08-12 12:59] LABS: INR 1.11 (0.9-1.15); Partial Thromboplastin Time 28.1 SEC (24.5-34.5); Prothrombin Time 11.6 sec (9.3-11.8)
[2024-08-12] MEDS: ENOXAPARIN SOD 100 MG/1 ML SYRINGE SC SCH (21:32)
[2024-08-13] VITALS (13 sets, daily range): BP systolic 102–133; BP diastolic 64–86; PULSE 66–99; RESP 16–22; TEMP 98–99; O2SAT 93–98
[2024-08-13 07:35] LABS: Chloride 104 mmol/L (98-107); Potassium 3.9 mmol/L (3.5-5.1); Sodium 141 mmol/L (136-145)
[2024-08-13 07:36] LABS: Anion Gap 10 (5-15); Calcium 9.5 mg/dL (8.7-10.4); Carbon Dioxide 27 mmol/L (20-31)
[2024-08-13 07:40] LABS: Basophils # (auto) 0 10 ^3/uL (0-0.2); Basophils % (auto) 0.4 % (0.0-2.0); Eosinophils # (auto) 0.1 10 ^3/uL (0-0.8); Eosinophils % (auto) 0.5 % (0.0-7.0); Hematocrit 33.1 % (41.0-53.0); Hemoglobin 11.1 g/dL (13.5-17.5); Lymphocytes # (auto) 2.1 10 ^3/uL (0.4-5.4); Lymphocytes % (auto) 17.1 % (10.0-50.0); Mean Corpuscular Hemoglobin 30.8 pg (28.0-32.0); Mean Corpuscular Hgb Conc. 33.6 g/dL (32.0-36.0); Mean Corpuscular Volume 91.5 fL (80.0-100.0); Monocytes # (auto) 1.4 10 ^3/uL (0-1.3); Monocytes % (auto) 11.1 % (0.0-12.0); Neutrophils # (auto) 8.9 10 ^3/uL (1.6-8.6); Neutrophils % (auto) 70.9 % (37.0-80.0); Platelet Count (auto) 161 10^3/uL (140-450); Red Blood Cells 3.62 10^6/uL (4.5-5.90); Red Cell Distribution Width 13.8 % (11.8-14.3); White Blood Cell 12.5 10^3/uL (4.4-10.8)
[2024-08-13 07:41] LABS: BUN/Creatinine Ratio 15.5 (10.0-20.0); Blood Urea Nitrogen 13 mg/dL (9-23); Glucose 90 mg/dL (74-106)
--- NOTE | 2024-08-13 10:54 | DVHPN2 ---
Subjective Patient reports that his pain has improved. Reviewed: Care Plan, H&P, Labs, Medications Changes from previous H/P or p: No Changes General: Per HPI Eyes: No Pain, No Vision change, No Conjunctivae inflammation, No Eyelid inflammation, No Other, No Redness Cardiovascular: No Chest Pain, No Palpitations, No Orthopnea, No Paroxysmal Noc. Dyspnea; Edema; No Lt Headedness, No Other Respiratory: No Cough, No Dry, No Shortness of breath, No SOB with excertion, No Wheezing, No Hemoptysis, No Pleuritic Pain, No Sputum, No Other Gastrointestinal: No Nausea, No Vomiting, No Abdominal Pain, No Diarrhea, No Constipation, No Melena, No Hematochezia; Other (Blood streak bowel) Genitourinary: No Dysuria, No Frequency, No Incontinence; Hematuria; No Retention, No Other Musculoskeletal: No other, No neck pain, No shoulder pain, No arm pain; back pain; No hand pain, No leg pain, No foot pain Skin: No Rash, No Lesions, No Jaundice, No Bruising, No Other Objective Vitals Vital Signs Date Time Temp Pulse Resp B/P (MAP) Pulse Ox O2 Delivery O2 Flow Rate FiO2 08/13/24 08:00 98 18 96 Room Air* 0 21 08/13/24 05:00 98.8 102/64 (77) 98.8 Intake/Output Intake and Output 08/13/24 07:00 Intake Total 1800 ml Output Total 3050 ml Balance -1250 ml Intake Oral 1700 ml IV Total 100 ml Output Urine Total 3050 ml # Voids 4 General Appearance: Alert, Oriented X3, Cooperative, No acute distress HEENT: Atraumatic, PERRLA Lungs: Clear to auscultation, Normal air movement Cardiovascular: Normal S1, Normal S2, Other (Sinus tach) Abdomen: Normal bowel sounds, Soft, No tenderness Back: Flank Tenderness, Midline Tenderness Musculoskeletal: Normal sensory function, Normal motor function Extremities: Other (Decrease swelling to right lower extremity. Left lower extremity with mild improvement.) Neuro: Cranial nerves 3-12 NL Skin: Dry, Intact Psych/Mental Status: Mental status NL, Mood NL Medications Current Medications Medications Dose Ordered Sig/Abdoulaye Route Start Time Stop Time Status Last Admin Dose Admin Ceftriaxone Sodium 50 ml @ 100 mls/hr DAILY@1800 IV 08/11/24 18:00 Cancel Sodium Chloride 1,000 ml @ 60 mls/hr [id number] IV 08/11/24 00:00 08/13/24 02:00 60 MLS/HR Ondansetron HCl 4 mg Q4HP PRN IV 08/11/24 00:00 Docusate Sodium 100 mg BIDPRN PRN PO 08/11/24 00:00 Acetaminophen 650 mg Q6HP PRN PO 08/11/24 00:00 Nitroglycerin 0.4 mg Q5MINP PRN SL 08/11/24 00:00 Morphine Sulfate 2 mg Q30M PRN IV 08/11/24 00:00 Oxycodone/ Acetaminophen 1 tab Q4HP PRN PO 08/11/24 15:15 08/12/24 19:38 1 TAB Piperacillin Sod/ Tazobactam Sod 100 ml @ 25 mls/hr Q8HR IV 08/11/24 15:50 08/13/24 06:22 25 MLS/HR Morphine Sulfate 2 mg Q4HPRN PRN IV 08/12/24 10:45 Enoxaparin Sodium 100 mg Q12HR SC 08/12/24 22:00 08/12/24 21:32 100 MG Cyclobenzaprine HCl 5 mg Q8HPRN PRN PO 08/12/24 10:45 08/13/24 09:11 5 MG Laboratory Results Laboratory Tests 08/13/24 06:12 Chemistry Test 08/13/24 06:12 Calcium Level 9.5 mg/dL (8.7-10.4) Coagulation Test 08/12/24 11:26 Prothrombin Time 11.6 sec (9.3-11.8) Prothrombin Time INR 1.11 (0.9-1.15) Activated Partial Thromboplast Time 28.1 SEC (24.5-34.5) Urinalysis Test 08/11/24 20:24 Urine Color Yellow (Yellow) Urine Clarity Clear (Clear) Urine pH 6.0 (5.0-9.0) Urine Specific [place] 1.039 (1.001-1.035) Urine Protein Trace (Negative) H Urine Ketones Negative (Negative) Urine Blood Negative /uL (Negative) Urine Nitrite Negative (Negative) Urine Bilirubin Negative (Negative) Urine Urobilinogen Normal mg/dL (Negative) Urine Leukocyte Esterase Negative /uL (Negative) Urine RBC 1 /hpf (0 - 3) Urine Microscopic WBC 3 /HPF (0-3) Urine Squamous Epithelial Cells Few /hpf (<5) Urine Bacteria None seen /hpf (None Seen) Urine Mucus Few (None Seen) Urine Glucose Normal mg/dL (Normal) Microbiology Microbiology Date/Time Source Procedure Growth Status 08/11/24 20:24 Voided Urine Urine Culture - Preliminary Resulted 08/11/24 06:05 Blood Blood Culture - Preliminary NO GROWTH AFTER 48 HOURS OF INCUBATION. 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 -continue Zosyn yn -stop IV fluids -continue current pain management -repeat labs in a.m. Total time spent with patient discussing and formulating plan of care: 35 minutes. This medical document was created using an electronic medical record system with [employer] dictation system. Although this document has been carefully reviewed, there may still be some phonetic and typographical errors. These areas are purely typographical due to imperfections of the software programs, and do not reflect any compromise in the patient's medical care. Plan discussed with: Patient, Other (RN) My Orders Orders - MARJAN DE LA TORRE NP Procedure Category Date Status Time May Shower ALEAH 08/13/24 In Process 10:14 Date of Service: Aug 13, 2024 Billing Provider: MARJAN DE LA TORRE NP Common Visit Codes: [id number] INP/OBS CARE(HIGH) MARJAN DE LA TORRE NP Aug 13, 2024 10:54
[2024-08-13] MEDS: IODIXANOL 320MG/ML 100ML BTL IV ONE ×2 (11:46→13:37)
[2024-08-13] MEDS: MIDAZOLAM HCL 2MG/2ML 2ml VIAL (1mg/ml) ONE (12:23)
[2024-08-13] MEDS: HEPARIN SODIUM (PORCINE) 5000 UNITS/ML 1ML VIAL ONE (12:24)
[2024-08-13] MEDS: LIDOCAINE 2%HCL (LOCAL ANESTH.) INJ 20ML MDV ONE ×2 (12:24→13:37)
[2024-08-13] MEDS: fentaNYL CITRATE 100 MCG/2 ML VL ONE (12:24)
[2024-08-13] MEDS: PIPERACILLIN-TAZOB 3.375GM 100 ML IV SCH (17:37)
--- NOTE | 2024-08-13 18:18 | DVH ---
SOFYA PERCU.VENOUS THROMBECTOMY, HISTORY: VENOUS THROMBECTOMY PROCEDURE: Informed consent was obtained. The patient was placed on the fluoroscopic table in prone p osition. That left popliteal fossa was prepped with chlorhexidine which was allowed to dry and draped in the usual sterile fashion. Time out was performed. Following administration of 1% local lidocaine , the lesser saphenous vein was accessed with a micropuncture set under ultrasound guidance, and an i mage documenting patency sent to PACS. A venogram performed to confirm venous location. Over a glide advantage wire A6 Romansh sheath was placed into the popliteal vein. The wire and glide catheter were advanced into the IVC. Contrast was injected for a vena cava ogram. The wire and catheter were naviga shanique through the IVC filter. Contrast was injected in the proximal segment of the IVC above the filter . The introducer sheath was removed and the venotomy closed with manual compression. Post-deployment image was obtained. No immediate complication was identified. Air Kerma 27 mGy FLUOROSCOPY TIME: 4 minutes. CONTRAST USED: 30 mL . SEDATION: Dr. Blair Negrete was personally responsible for the administration of moderate sedation during the procedure performed, including the use of an independent trained observer who had no other duties during the procedure. The drugs utilized were IV fentanyl and versed (see nursing log for details). The total time of supervision by the attending physician was approximately 45 minutes. FINDINGS: Near occlusion of the left popliteal femoral veins. Small and atretic size of the left valentina c and common femoral veins with thrombus. Thrombus visualized in the contralateral right common iliac vein. Thrombus visualized in the distal IVC including within the IVC filter. Patent IVC proximal / c entral to the IVC filter. No thrombectomy could be performed. IMPRESSION: Near occlusion of the left popliteal femoral veins. Small and atretic size of the left iliac and comm on femoral veins with thrombus. Thrombus visualized in the contralateral right common iliac vein. Thr ombus visualized in the distal IVC including within the IVC filter. Patent IVC proximal / central to the IVC filter. No thrombectomy could be performed. PLAN: In order to perform a thrombectomy, the IVC filter would need to be removed and the thrombus in the distal IVC, iliac veins, femoral veins, popliteal veins would need to be removed. Then, stents w ould need to be placed in the bilateral iliac veins and possibly IVC to restore patency. However we d o not have the tools necessary to remove this IVC filter.
[2024-08-13] MEDS: MORPHINE SULFATE 4 MG/ML SYR/VIAL IV PRN (21:45)
--- NOTE | 2024-08-13 21:52 | DVHINCON2 ---
Date of Service if different f: Aug 13, 2024 Time of Service: 15:00 Consultation (HOKAH) Labs Laboratory Tests Test 08/11/24 04:17 08/11/24 20:24 08/12/24 11:26 08/13/24 06:12 Erythrocyte Sedimentation Rate 2 mm/hr (0-20) Total Bilirubin 0.8 mg/dL (0.2-1.0) Aspartate Amino Transf (AST/SGOT) 28 U/L (<34) Alanine Aminotransferase (ALT/SGPT) 32 U/L (7-40) Alkaline Phosphatase 117 U/L (46-116) Creatine Kinase 230 U/L (46-171) C-Reactive Protein High Sensitivity 3.90 mg/dL (<1.0) B-Type Natriuretic Peptide 11.66 pg/mL (0-100) Total Protein 7.6 g/dL (5.7-8.2) Albumin 4.8 g/dL (3.2-4.8) Urine Color Yellow (Yellow) Urine Clarity Clear (Clear) Urine pH 6.0 (5.0-9.0) Urine Specific [place] 1.039 (1.001-1.035) Urine Protein Trace (Negative) Urine Ketones Negative (Negative) Urine Blood Negative /uL (Negative) Urine Nitrite Negative (Negative) Urine Bilirubin Negative (Negative) Urine Urobilinogen Normal mg/dL (Negative) Urine Leukocyte Esterase Negative /uL (Negative) Urine RBC 1 /hpf (0 - 3) Urine Microscopic WBC 3 /HPF (0-3) Urine Squamous Epithelial Cells Few /hpf (<5) Urine Bacteria None seen /hpf (None Seen) Urine Mucus Few (None Seen) Urine Glucose Normal mg/dL (Normal) Urine Opiates Screen Pos (NEGATIVE) Urine Fentanyl Screen Neg (NEGATIVE) Urine Barbiturates Screen Neg (NEGATIVE) Urine Phencyclidine Screen Neg (NEGATIVE) Urine Amphetamines Screen Neg (NEGATIVE) Urine Benzodiazepines Screen Neg (NEGATIVE) Urine Cocaine Screen Neg (NEGATIVE) Urine Cannabinoids Screen Pos (NEGATIVE) Prothrombin Time 11.6 sec (9.3-11.8) Prothromb Time International Ratio 1.11 (0.9-1.15) Activated Partial Thromboplast Time 28.1 SEC (24.5-34.5) White Blood Count 12.5 10^3/uL (4.4-10.8) Red Blood Count 3.62 10^6/uL (4.5-5.90) Hemoglobin 11.1 g/dL (13.5-17.5) Hematocrit 33.1 % (41.0-53.0) Mean Corpuscular Volume 91.5 fL (80.0-100.0) Mean Corpuscular Hemoglobin 30.8 pg (28.0-32.0) Mean Corpuscular Hemoglobin Concent 33.6 g/dL (32.0-36.0) Red Cell Distribution Width 13.8 % (11.8-14.3) Platelet Count 161 10^3/uL (140-450) Mean Platelet Volume 8.1 fL (6.9-10.8) Neutrophils (%) (Auto) 70.9 % (37.0-80.0) Lymphocytes (%) (Auto) 17.1 % (10.0-50.0) Monocytes (%) (Auto) 11.1 % (0.0-12.0) Eosinophils (%) (Auto) 0.5 % (0.0-7.0) Basophils (%) (Auto) 0.4 % (0.0-2.0) Neutrophils # (Auto) 8.9 10 ^3/uL (1.6-8.6) Lymphocytes # (Auto) 2.1 10 ^3/uL (0.4-5.4) Monocytes # (Auto) 1.4 10 ^3/uL (0-1.3) Eosinophils # (Auto) 0.1 10 ^3/uL (0-0.8) Basophils # (Auto) 0 10 ^3/uL (0-0.2) Nucleated Red Blood Cells 0.0 % Sodium Level 141 mmol/L (136-145) Potassium Level 3.9 mmol/L (3.5-5.1) Chloride Level 104 mmol/L (98-107) Carbon Dioxide Level 27 mmol/L (20-31) Anion Gap 10 (5-15) Blood Urea Nitrogen 13 mg/dL (9-23) Creatinine 0.84 mg/dL (0.700-1.30) Glomerular Filtration Rate Calc 111 mL/min (>90) BUN/Creatinine Ratio 15.5 (10.0-20.0) Serum Glucose 90 mg/dL (74-106) Calcium Level 9.5 mg/dL (8.7-10.4) Microbiology Date/Time Source Procedure Growth Status 08/11/24 20:24 Voided Urine Urine Culture - Final Complete 08/11/24 06:05 Blood Blood Culture - Preliminary NO GROWTH AFTER 48 HOURS OF INCUBATION. Resulted Vitals Vital Signs Date Time Temp Pulse Resp B/P (MAP) Pulse Ox O2 Delivery O2 Flow Rate FiO2 08/13/24 21:45 89 18 119/86 08/13/24 21:00 98.7 96 98.7 08/13/24 08:00 Room Air* 0 21 Current medications Current Medications Medications Dose Ordered Sig/Abdoulaye Route Start Time Stop Time Status Last Admin Dose Admin Ceftriaxone Sodium 50 ml @ 100 mls/hr DAILY@1800 IV 08/11/24 18:00 Cancel Ondansetron HCl 4 mg Q4HP PRN IV 08/11/24 00:00 Docusate Sodium 100 mg BIDPRN PRN PO 08/11/24 00:00 Acetaminophen 650 mg Q6HP PRN PO 08/11/24 00:00 Nitroglycerin 0.4 mg Q5MINP PRN SL 08/11/24 00:00 Morphine Sulfate 2 mg Q30M PRN IV 08/11/24 00:00 Oxycodone/ Acetaminophen 1 tab Q4HP PRN PO 08/11/24 15:15 08/13/24 18:09 1 TAB Morphine Sulfate 2 mg Q4HPRN PRN IV 08/12/24 10:45 08/13/24 21:45 2 MG Enoxaparin Sodium 100 mg Q12HR SC 08/12/24 22:00 08/13/24 21:47 100 MG Cyclobenzaprine HCl 5 mg Q8HPRN PRN PO 08/12/24 10:45 08/13/24 18:08 5 MG Piperacillin Sod/ Tazobactam Sod 100 ml @ 25 mls/hr Q6HR IV 08/13/24 18:00 08/13/24 17:37 25 MLS/HR PSYCHIATRY CONSULT NOTE Patient is a 43-year-old male admitted with bilateral lower extremity edema and was scheduled for thrombectomy. Psychiatry was consulted after the patient became tearful upon learning the procedure was unsuccessful. At the time of our evaluation, the patient respectfully declined a psychiatric interview, stating he "just needed a moment." The patients emotional response appears appropriate given the context of medical disappointment and physical discomfort. At this time, there is no clear indication of psychiatric pathology or acute safety concerns. A psychiatric consultation may unintentionally pathologize a normative emotional reaction. Should the primary team have specific concerns regarding the patients safety, mood, or mental statusand the patient is amenable to evaluationwe welcome reconsultation for further assessment. ABHISHEK VELASCO MD Aug 13, 2024 21:52
[2024-08-14] VITALS (8 sets, daily range): BP systolic 107–120; BP diastolic 74–78; PULSE 83–97; RESP 16–19; TEMP 36.6; O2SAT 96–98
[2024-08-14] MEDS: DOCUSATE SOD 100 MG CAP PO PRN (04:26)
[2024-08-14 06:42] LABS: Anion Gap 10 (5-15); Calcium 9.1 mg/dL (8.7-10.4); Carbon Dioxide 27 mmol/L (20-31); Chloride 100 mmol/L (98-107); Potassium 4.1 mmol/L (3.5-5.1); Sodium 137 mmol/L (136-145)
[2024-08-14 06:48] LABS: BUN/Creatinine Ratio 17.6 (10.0-20.0); Blood Urea Nitrogen 16 mg/dL (9-23); Glucose 104 mg/dL (74-106)
[2024-08-14 08:34] LABS: Basophils # (auto) 0 10 ^3/uL (0-0.2); Basophils % (auto) 0.3 % (0.0-2.0); Eosinophils # (auto) 0.1 10 ^3/uL (0-0.8); Eosinophils % (auto) 0.8 % (0.0-7.0); Hematocrit 34.4 % (41.0-53.0); Hemoglobin 11.5 g/dL (13.5-17.5); Lymphocytes # (auto) 2.2 10 ^3/uL (0.4-5.4); Lymphocytes % (auto) 16.9 % (10.0-50.0); Mean Corpuscular Hemoglobin 30.6 pg (28.0-32.0); Mean Corpuscular Hgb Conc. 33.3 g/dL (32.0-36.0); Mean Corpuscular Volume 92.1 fL (80.0-100.0); Monocytes # (auto) 1.5 10 ^3/uL (0-1.3); Monocytes % (auto) 11.9 % (0.0-12.0); Neutrophils % (auto) 70.1 % (37.0-80.0); Platelet Count (auto) 227 10^3/uL (140-450); Red Blood Cells 3.74 10^6/uL (4.5-5.90); Red Cell Distribution Width 13.7 % (11.8-14.3); White Blood Cell 12.8 10^3/uL (4.4-10.8)
[2024-08-14] MEDS ORDERED: PERCOT PO ×2 (10:36→16:12)
[2024-08-14] MEDS ORDERED: AUG875T PO ×2 (10:36→16:12)
--- NOTE | 2024-08-14 10:46 | DVHDS2 ---
Discharge Summary Date of Admission Aug 10, 2024 at 23:57 Date of Discharge: Aug 14, 2024 Admitting Diagnosis Pedal edema Labs/Diagnostic Data: Laboratory Results Test 08/14/24 05:27 08/12/24 11:26 08/11/24 20:24 08/11/24 04:17 White Blood Count 12.8 10^3/uL (4.4-10.8) Red Blood Count 3.74 10^6/uL (4.5-5.90) Hemoglobin 11.5 g/dL (13.5-17.5) Hematocrit 34.4 % (41.0-53.0) Mean Corpuscular Volume 92.1 fL (80.0-100.0) Mean Corpuscular Hemoglobin 30.6 pg (28.0-32.0) Mean Corpuscular Hemoglobin Concent 33.3 g/dL (32.0-36.0) Red Cell Distribution Width 13.7 % (11.8-14.3) Platelet Count 227 10^3/uL (140-450) Mean Platelet Volume 8.3 fL (6.9-10.8) Neutrophils (%) (Auto) 70.1 % (37.0-80.0) Lymphocytes (%) (Auto) 16.9 % (10.0-50.0) Monocytes (%) (Auto) 11.9 % (0.0-12.0) Eosinophils (%) (Auto) 0.8 % (0.0-7.0) Basophils (%) (Auto) 0.3 % (0.0-2.0) Neutrophils # (Auto) 9.0 10 ^3/uL (1.6-8.6) Lymphocytes # (Auto) 2.2 10 ^3/uL (0.4-5.4) Monocytes # (Auto) 1.5 10 ^3/uL (0-1.3) Eosinophils # (Auto) 0.1 10 ^3/uL (0-0.8) Basophils # (Auto) 0 10 ^3/uL (0-0.2) Nucleated Red Blood Cells 0.0 % Sodium Level 137 mmol/L (136-145) Potassium Level 4.1 mmol/L (3.5-5.1) Chloride Level 100 mmol/L (98-107) Carbon Dioxide Level 27 mmol/L (20-31) Anion Gap 10 (5-15) Blood Urea Nitrogen 16 mg/dL (9-23) Creatinine 0.91 mg/dL (0.700-1.30) Glomerular Filtration Rate Calc 107 mL/min (>90) BUN/Creatinine Ratio 17.6 (10.0-20.0) Serum Glucose 104 mg/dL (74-106) Calcium Level 9.1 mg/dL (8.7-10.4) Prothrombin Time 11.6 sec (9.3-11.8) Prothrombin Time INR 1.11 (0.9-1.15) Activated Partial Thromboplast Time 28.1 SEC (24.5-34.5) Urine Color Yellow (Yellow) Urine Clarity Clear (Clear) Urine pH 6.0 (5.0-9.0) Urine Specific [place] 1.039 (1.001-1.035) Urine Protein Trace (Negative) Urine Ketones Negative (Negative) Urine Blood Negative /uL (Negative) Urine Nitrite Negative (Negative) Urine Bilirubin Negative (Negative) Urine Urobilinogen Normal mg/dL (Negative) Urine Leukocyte Esterase Negative /uL (Negative) Urine RBC 1 /hpf (0 - 3) Urine Microscopic WBC 3 /HPF (0-3) Urine Squamous Epithelial Cells Few /hpf (<5) Urine Bacteria None seen /hpf (None Seen) Urine Mucus Few (None Seen) Urine Glucose Normal mg/dL (Normal) Urine Opiates Screen Pos (NEGATIVE) Urine Fentanyl Screen Neg (NEGATIVE) Urine Barbiturates Screen Neg (NEGATIVE) Urine Phencyclidine Screen Neg (NEGATIVE) Urine Amphetamines Screen Neg (NEGATIVE) Urine Benzodiazepines Screen Neg (NEGATIVE) Urine Cocaine Screen Neg (NEGATIVE) Urine Cannabinoids Screen Pos (NEGATIVE) Erythrocyte Sedimentation Rate 2 mm/hr (0-20) Total Bilirubin 0.8 mg/dL (0.2-1.0) Aspartate Amino Transferase (AST) 28 U/L (<34) Alanine Aminotransferase (ALT) 32 U/L (7-40) Alkaline Phosphatase 117 U/L (46-116) Creatine Kinase 230 U/L (46-171) C-Reactive Protein High Sensitivity 3.90 mg/dL (<1.0) B-Type Natriuretic Peptide 11.66 pg/mL (0-100) Total Protein 7.6 g/dL (5.7-8.2) Albumin 4.8 g/dL (3.2-4.8) Other Laboratory Tests 08/14/24 05:27 Brief Hx & Hospital Course: History of Present Illness The patient is a 43-year-old male with past medical history of DVTs who presented to [facility] ED with complaint of bilateral lower extremity edema. Patient reports that he had been at a skate park with his children a week ago when his daughter was approaching the edge of a steep slope, managing to move her away, but fell over and landed on his right side, causing him to lose consciousness for some time. Patient relays that since the fall, he has been experiencing bilateral leg swelling, discoloration, lower back pain, numbness from abdomen down, hematuria, and blood in stools. 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 Patient was seen and evaluated in the ED, laboratory data shows WBC 19.7, platelets 183, sodium 135, potassium 5.5, BUN 26, creatinine 1.40, glucose 165, blood pressure 118/74, heart rate 99, temperature 97.9 F, O2 saturation 98% on room air. CT angio abdomen aorta with runoff showed no evidence of acute arterial insufficiency arterial injury. Patient was started on IV antibiotic regimen Rocephin, please see medication orders section in the computer. On my assessment, patient denied chest pain, no dizziness, no diaphoresis, no headache, no shortness of breath, no nausea, no vomiting, no fever, no chills. Patient was admitted for further evaluation and medical management. Course of hospitalization: Patient was found to have elevated white blood cell count, severe pain bilateral lower extremities, in addition to having noticed severe swelling and mild cellulitis to his lower extremity. DVT study was performed which showed extensive thrombus to both legs. Patient does have a history of DVTs currently on Eliquis. Patient also has a history of IVC filter placement. Patient was placed on antibiotic therapy with Zosyn. White blood cell count improved. Renal function improved. Interventional radiology consultation with the obtained, for which the patient underwent bilateral lower extremity venogram with possible thrombosis. Given the extent of his thrombus in his IVC filter as well as his iliacs and, femorals, it was felt the patient should have his IVC filter removed which would require with the patient to be sent to a tertiary care facility given it was placed in 2001. Long discussion was made with the patient regarding this plan of care. At this time he is agreeable to be discharged home after receiving a wheelchair to assist with his lower extremity swelling and pain, pain management, as well as antibiotic therapy. Patient was instructed to follow up with his primary care doctor back in his hometown of [place]. From there he can receive a referral to appropriate facility, vascular surgeon or interventional radiologist for further treatment. Physical examination General: Alert and Oriented x3. No acute distress. Well-nourished. Eyes: EOMI. Anicteric. HENT: Moist mucous membranes. Lungs: Clear to auscultation bilaterally. No accessory muscle use. Cardiovascular: Regular rate and rhythm. No murmur. No JVD. Abdomen: Soft, non-tender and non-distended. No palpable masses. Extremities: No edema. Non-tender. Skin: No rashes or lesions. Warm. Neurologic: No focal neurological deficits. CN II-XII grossly intact, but not individually tested. Psychiatric: Cooperative. Appropriate mood and affect. Total time spent with patient discussing and formulating plan of care: 35 minutes. This medical document was created using an electronic medical record system with [employer] dictation system. Although this document has been carefully reviewed, there may still be some phonetic and typographical errors. These areas are purely typographical due to imperfections of the software programs, and do not reflect any compromise in the patient's medical care. 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 b.i.d. x5 days Percocet 5/325 q.8 hours as needed for [id number] pain 36 Discharge Statement: "Patient was advised to return to the ER or call 911 if any headaches, dizziness, shortness of breath, chest pain, abdominal pain, bleeding, fevers, or worsening of medical condition. Patient was counseled about treatment plan, medications, possible side effects, patientverbalized understanding. All questions were answered to the best of my ability. This discharge took greater then 30 minutes in planning, reviewing documentation, counseling the patient, and discussing with other team members." DME: Diagnosis: BLE DVTs ASSESSMENT ASSESSMENT Assessment DVT to bilateral lower extremities Date of Service: Aug 14, 2024 Billing Provider: MARJAN DE LA TORRE NP Common Visit Codes: 72415-CXL/OBS DISCH DAY >30min MARJAN DE LA TORRE NP Aug 14, 2024 10:46
== END 2024-08-14 18:05 | disposition home health service (06) | DRG 197 ==
LOC: EDBD 12:55 → ER 12:55 → OVERFLOW 23:57 → TELE-CENTR 08-11 17:46
PROVIDERS: ADMIT Nurse Practitioner Acute Care; ATTEND Nurse Practitioner Acute Care
PROC: B51C1ZZ Fluoroscopy of Left Lower Extremity Veins using Low Osmolar Contrast (ICD-10-PCS; principal; 2024-08-13)
DX: I82.493 Acute embolism and thrombosis of other specified deep vein of lower extremity, bilateral (principal); N17.0 Acute kidney failure with tubular necrosis; I82.220 Acute embolism and thrombosis of inferior vena cava; E87.8 Other disorders of electrolyte and fluid balance, not elsewhere classified; Z95.828 Presence of other vascular implants and grafts; L03.116 Cellulitis of left lower limb; R60.0 Localized edema; E87.5 Hyperkalemia; G89.4 Chronic pain syndrome; Z90.81 Acquired absence of spleen; Z79.01 Long term (current) use of anticoagulants; Z90.49 Acquired absence of other specified parts of digestive tract; Z86.718 Personal history of other venous thrombosis and embolism
CPT/HCPCS: 36415; 37187; 72131; 75635; 76937; 80048; 80053; 80307; 81001; 82550; 83880; 85025; 85610; 85652; 85730; 86141; 87040; 87086; 93970; 96365; 96375; 97163; 99152; 99291; C1769; C1894; G0378; J2250; J2543; Q9967